=== PATIENT | female | born 1980 | race American Indian/Alaskan Native ===

== ENCOUNTER 2017-01-25 20:10 | Emergency (ER) | payer OTHER ==
[2017-01-25 20:36] VITALS: O2SAT 100
--- NOTE | 2017-01-25 21:00 | C.PDOC ---
History Of Present Illness A 36 year old female with a Hx of migraines, presents to the ER c/o itchy throat that occurred today. Patient notes that an hour ago she took Sumatriptan for the first time then 30 min after she states "felt her throat was dry and itching" and was unsure if it was the medication she took. Patient reports no known allergies. Patient denies nausea, vomiting, fever, chills, or any other complaints. Time Seen by Provider: 01/25/17 20:48 Chief Complaint (Nursing): Allergic Reaction History Per: Patient History/Exam Limitations: no limitations Onset/Duration Of Symptoms: Hrs Current Symptoms Are (Timing): Still Present Possible Cause: Medication Associated Symptoms: Itching Severity: Mild Additional History Per: Patient Past Medical History Reviewed: Historical Data, Nursing Documentation, Vital Signs Vital Signs: Last Vital Signs Temp 97.9 F 01/25/17 20:34 Pulse 101 H 01/25/17 20:34 Resp 16 01/25/17 20:34 BP 115/75 01/25/17 20:34 Pulse Ox 100 01/25/17 21:28 - Medical History PMH: Gastritis, Pancreatitis Family History: States: Unknown Family Hx - Social History Hx Tobacco Use: No Hx Alcohol Use: No Hx Substance Use: No - Immunization History Hx Tetanus Toxoid Vaccination: No Hx Influenza Vaccination: Yes Hx Pneumococcal Vaccination: Yes Review Of Systems Except As Marked, All Systems Reviewed And Found Negative. Constitutional: Negative for: Fever, Chills ENT: Positive for: Other (Throat itching) Gastrointestinal: Negative for: Nausea, Vomiting Physical Exam - Physical Exam Appears: Non-toxic, No Acute Distress Skin: Warm, Dry Head: Normacephalic Eye(s): bilateral: Normal Inspection, EOMI Nose: Normal Oral Mucosa: Moist Tongue: Normal Appearing, No Swelling Lips: Normal Appearing, No Swelling Throat: Normal, No Exudate Cardiovascular: Rhythm Regular, No Murmur Respiratory: Normal Breath Sounds, No Rales, No Rhonchi, No Wheezing Neurological/Psych: Oriented x3, Normal Speech (Speeking full sentences), Normal Cognition ED Course And Treatment O2 Sat by Pulse Oximetry: 100 (RA) Pulse Ox Interpretation: Normal Medical Decision Making Medical Decision Making: Plans: -Benadryl -PredniSONE -Pepcid -Reassess and disposition Patient is resting comfortably, tolerating PO, has no shortness of breath, has no intra-oral swelling, no stridor, no rash or pruritus. Patient was advised to avoid potential allergens, and to follow up with physician in 1-2 days. 930: pt reassesed. states feeling better. does not wish to wait in er for further obs. states she is ready for d/c at this time. advised to d/c sumatriptan. return precautions advised. pt instructed on epipen use, verbalizes understanding. pt on cell phone in nad. speaking full sentences. no e /o of airway compromise. Disposition - Disposition Referrals: [facility] [Outside] [facility] [Outside] Disposition: HOME/ ROUTINE Disposition Time: 21:26 Condition: STABLE Additional Instructions: please see your doctor/clinic. return to er with worsening symptoms or concerns. Prescriptions: DiphenhydrAMINE [Benadryl] 25 mg PO Q6 PRN #20 cap PRN Reason: Allergy Symptoms Epinephrine HCl [Epipen Auto-Injector] 0.3 mg IM ONCE PRN #1 ml PRN Reason: Anaphylaxis Prednisone 50 mg PO DAILY #4 tablet Instructions: Allergies (ED), General Allergic Reaction (ED) - Clinical Impression Clinical Impression: Allergic reaction - Scribe Statement The provider has reviewed the documentation as recorded by the Scribe Yao holm All medical record entries made by the Scribe were at my direction and personally dictated by me. I have reviewed the chart and agree that the record accurately reflects my personal performance of the history, physical exam, medical decision making, and the department course for this patient. I have also personally directed, reviewed, and agree with the discharge instructions and disposition.
[2017-01-25 21:40] VITALS: BP 112/74; PULSE 84; RESP 18; TEMP 97.8
== END 2017-01-25 21:40 | disposition home or self-care (01) ==
LOC: C.ER 20:10
DX: T78.40XA Allergy, unspecified, initial encounter (principal)

== ENCOUNTER 2018-04-15 17:01 | Emergency (ER) | payer OTHER ==
[2018-04-15 17:08] VITALS: RESP 18; TEMP 98.4; O2SAT 100
--- NOTE | 2018-04-15 18:07 | C.PDOC ---
History Of Present Illness 38 year old female presents to the ED complaining of right foot and ankle pain that began today at 1pm at work. Patient states pain is worse with movement, and better at rest. She denies any injuries/trauma. She took tylenol with mild relief. She denies denies any weakness, numbness, tingling. Time Seen by Provider: 04/15/18 17:21 Chief Complaint (Nursing): Lower Extremity Problem/Injury History Per: Patient History/Exam Limitations: no limitations Onset/Duration Of Symptoms: Hrs Current Symptoms Are (Timing): Still Present Past Medical History Reviewed: Historical Data, Nursing Documentation, Vital Signs Vital Signs: Last Vital Signs Temp 98.4 F 04/15/18 17:06 Pulse 90 04/15/18 18:34 Resp 18 04/15/18 18:34 BP 131/88 04/15/18 18:34 Pulse Ox 100 04/15/18 18:37 - Medical History PMH: Gastritis, Pancreatitis Other Surgeries: Hx of surgeries Family History: States: No Known Family Hx - Social History Hx Tobacco Use: No Hx Alcohol Use: No Hx Substance Use: No - Immunization History Hx Tetanus Toxoid Vaccination: No Hx Influenza Vaccination: Yes Hx Pneumococcal Vaccination: Yes Review Of Systems Musculoskeletal: Positive for: Foot Pain (Right ankle and foot pain ) Neurological: Negative for: Weakness, Numbness Physical Exam - Physical Exam Appears: Non-toxic, No Acute Distress Skin: Warm, Dry Head: Atraumatic, Normacephalic Eye(s): bilateral: Normal Inspection Nose: Normal Oral Mucosa: Moist Neck: Normal ROM, Supple Chest: Symmetrical Extremity: Normal ROM, Tenderness (Tenderness below right malleolus and plantar surface of foot ), Capillary Refill (< 2sec to right foot ), No Deformity, No Swelling Extremity: Bilateral: Normal Color And Temperature, Normal ROM Pulses: Left Dorsalis Pedis: Normal, Right Dorsalis Pedis: Normal Neurological/Psych: Oriented x3, Normal Speech, Normal Motor, Normal Sensation Gait: Steady ED Course And Treatment O2 Sat by Pulse Oximetry: 100 (RA) Pulse Ox Interpretation: Normal Medical Decision Making Medical Decision Making: Impression: Plantar fasciitis, Ankle sprain Orders: - Motrin 600mg PO Patient assessed and examined. On reassessment, patient reports feeling better. HEATHER bandage applied by CP. Ortho shoe applied. Patient instructed on crutch walking. Recommend elevation, rest, ice and ibuprofen. If symptoms persist the patient instructed to follow up with podiatry Disposition Counseled Patient/Family Regarding: Diagnosis, Need For Followup, Rx Given - Disposition Referrals: [facility] [Outside] [facility] [Outside] Disposition: HOME/ ROUTINE Disposition Time: 18:05 Condition: STABLE Additional Instructions: Follow up with your primary medical doctor or podiatry clinic in 2-5 days for further evaluation. Take Ibuprofen as needed for pain every 6-8 hours. Return to the emergency department at any time if symptoms persist or worsen. Prescriptions: Ibuprofen [Motrin] 600 mg PO Q8 #30 tab Instructions: Heel Pain (Caused by Plantar Fasciitis) (DC) Forms: [employer] (Turkmen), Work Excuse - POA Present On Arrival: None - Clinical Impression Clinical Impression: Plantar fasciitis, Ankle sprain - PA / DESIGN DRAFTER CHIEF / Resident Statement MD/DO has reviewed & agrees with the documentation as recorded. - Scribe Statement The provider has reviewed the documentation as recorded by the Scribsimon Boyd All medical record entries made by the Revaibsimon were at my direction and personally dictated by me. I have reviewed the chart and agree that the record accurately reflects my personal performance of the history, physical exam, medical decision making, and the department course for this patient. I have also personally directed, reviewed, and agree with the discharge instructions and disposition.
--- NOTE | 2018-04-15 18:23 | RAD ---
Date of service: 04/15/2018 PROCEDURE: Right Ankle Radiographs. HISTORY: pain and swelling s.p injury COMPARISON: None FINDINGS: BONES: Normal. No fracture. JOINTS: Normal. No osteoarthritis. Ankle mortise maintained. Talar dome intact SOFT TISSUES: Normal. OTHER FINDINGS: None. IMPRESSION: No evidence of acute fracture or dislocation.
[2018-04-15 18:35] VITALS: BP 131/88; PULSE 90
== END 2018-04-15 18:35 | disposition home or self-care (01) ==
LOC: C.ER 17:01
DX: M72.2 Plantar fascial fibromatosis (principal); S93.401A Sprain of unspecified ligament of right ankle, initial encounter; X58.XXXA Exposure to other specified factors, initial encounter

== ENCOUNTER 2018-04-19 17:42 | Emergency (ER) | payer OTHER ==
[2018-04-19 17:49] VITALS: BP 132/88; PULSE 85; RESP 18; TEMP 98; O2SAT 100
--- NOTE | 2018-04-19 18:08 | C.PDOC ---
History Of Present Illness 38 yo female was sent from clinic for Doppler US RLE r/o DVT. Pt reports, has intermittent Right foot pain radiating up to Right ankle area associated with tingling sensation gradually developed for past few weeks. Pt denies known trauma or injury, fever, chills, denies known trauma or injury, denies cough, CP , SOB, dyspnea, wheezing, palpitation, denies weakness, skin changes, sensory or vascular deficits to Right leg, denies Right calf pain. NO risk factors for DVT. Time Seen by Provider: 04/19/18 17:53 Chief Complaint (Nursing): Lower Extremity Problem/Injury History Per: Patient Past Medical History Reviewed: Historical Data, Nursing Documentation, Vital Signs Vital Signs: Last Vital Signs Temp 98 F 04/19/18 17:46 Pulse 85 04/19/18 17:46 Resp 18 04/19/18 17:46 BP 132/88 04/19/18 17:46 Pulse Ox 100 04/19/18 17:46 - Medical History PMH: Deep Vein Thrombosis, Gastritis, Pancreatitis Family History: States: Unknown Family Hx - Social History Hx Tobacco Use: No Hx Alcohol Use: No Hx Substance Use: No - Immunization History Hx Tetanus Toxoid Vaccination: No Hx Influenza Vaccination: Yes Hx Pneumococcal Vaccination: Yes Review Of Systems Except As Marked, All Systems Reviewed And Found Negative. Constitutional: Negative for: Fever, Chills ENT: Negative for: Throat Pain Cardiovascular: Negative for: Chest Pain, Palpitations, Edema, Light Headedness Respiratory: Negative for: Cough, Shortness of Breath Genitourinary: Negative for: Incontinence Musculoskeletal: Positive for: Foot Pain (Right) Skin: Negative for: Rash, Lesions Neurological: Negative for: Weakness, Numbness, Headache Physical Exam - Physical Exam Appears: Well, Non-toxic, No Acute Distress Skin: Normal Color, Warm, No Rash, No Ecchymosis Head: Normacephalic Eye(s): bilateral: PERRL Throat: No Erythema Neck: Trachea Midline, Supple Cardiovascular: Rhythm Regular, No Murmur, No JVD Respiratory: No Decreased Breath Sounds, No Accessory Muscle Use, No Stridor Back: No Vertebral Tenderness, No Paraspinal Tenderness Extremity: Normal ROM (RLE without difficulty or limitation), Tenderness (mild over plantar arch Right foot. No edmea, no erythema, no palpable defomrity.), No Calf Tenderness (Right), Capillary Refill (less than 2sec to Right foot), No Deformity, No Swelling Neurological/Psych: Oriented x3, Normal Speech, Normal Motor, Normal Sensation, Normal Reflexes ED Course And Treatment O2 Sat by Pulse Oximetry: 100 Pulse Ox Interpretation: Normal Progress Note: On re-eval, pt is afebrile, hemodynamicaly stable. NOn-toxic. Ambulatory in ED with stable gait. PulsOEx 100% RA. ENT: no acute findings. neck: SUpple. Lungs: CTA B/L, BS equal B/L. Right LE: mild tenderness over Right plantar arch. No edmea, no erythema, no palpable deofmrity. FAROM, no neurovascular defiicts. Doppler US is not available at present time at [facility]. Pt hsa ni risk factors for DVT. Pt advised return to ED tomorrow without fail for Doppler US. Pt understand and agrees with plan. STable for discharge now. Disposition Counseled Patient/Family Regarding: Diagnosis, Need For Followup, Rx Given - Disposition Referrals: [facility] [Provider Group] [facility] [Provider Group] Disposition: HOME/ ROUTINE Disposition Time: 18:05 Condition: STABLE Additional Instructions: RETURN TO ED TOMORROW FROM 8 AM-3PM FOR DOPPLER US RULE OUT DVT RIGHT LEG TAKE PAIN MEDICATION NEED Prescriptions: Gabapentin [Neurontin] 300 mg PO HS #7 cap Instructions: Deep Vein Thrombosis (Blood Clots in the Legs) Forms: [facility] (Turkish), Work Excuse - Clinical Impression Clinical Impression: Right foot pain
== END 2018-04-19 18:25 | disposition home or self-care (01) ==
LOC: C.ER 17:42
DX: M79.671 Pain in right foot (principal)

== ENCOUNTER 2018-12-13 11:13 | Emergency (ER) | payer OTHER ==
[2018-12-13 11:33] VITALS: RESP 20; O2SAT 100
[2018-12-13 12:23] LABS: HCG,QUALITATIVE URINE NEGATIVE (NEGATIVE)
[2018-12-13 12:29] LABS: SQUAMOUS EPITHIAL 3 /hpf (0-5); URINE BACTERIA FEW (<OCC); URINE BILIRUBIN NEGATIVE (NEGATIVE); URINE BLOOD 2+ (NEGATIVE); URINE CLARITY Hazy (Clear); URINE COLOR Yellow (YELLOW); URINE GLUCOSE (UA) NORMAL (Normal); URINE LEUKOCYTE ESTERASE 2+ Leu/uL (Negative); URINE PROTEIN NEGATIVE (NEGATIVE); URINE UROBILINOGEN NORMAL mg/dL (0.2-1.0)
[2018-12-13 13:03] VITALS: BP 106/74; PULSE 88; TEMP 97.9
--- NOTE | 2018-12-13 13:03 | C.PDOC ---
History Of Present Illness 38 y/o female presents to the ED complaining of sensation of pelvic fullness for the last couple of days. Associated with scant blood in the urine, though she denies dysuria. Patient also reports urinary frequency and urgency. She admits to previous hx of UTI, and states current sensation feels similar. Otherwise she denies any headache, nausea, vomiting, chills, fevers, neck pain or stiffness. Time Seen by Provider: 12/13/18 11:39 Chief Complaint (Nursing): Female Genitourinary History Per: Patient History/Exam Limitations: no limitations Onset/Duration Of Symptoms: Days Current Symptoms Are (Timing): Still Present Associated Symptoms: Urinary Symptoms Past Medical History Reviewed: Historical Data, Nursing Documentation, Vital Signs Vital Signs: Last Vital Signs Temp 98.6 F 12/13/18 11:32 Pulse 100 H 12/13/18 11:32 Resp 20 12/13/18 11:32 BP 123/80 12/13/18 11:32 Pulse Ox 100 12/13/18 11:32 - Medical History PMH: Deep Vein Thrombosis, Gastritis, Pancreatitis Other Surgeries: Tubal ligation Family History: States: Unknown Family Hx - Social History Hx Tobacco Use: No Hx Alcohol Use: No Hx Substance Use: No - Immunization History Hx Tetanus Toxoid Vaccination: No Hx Influenza Vaccination: Yes Hx Pneumococcal Vaccination: Yes Review Of Systems Except As Marked, All Systems Reviewed And Found Negative. Constitutional: Negative for: Fever, Chills Gastrointestinal: Negative for: Nausea, Vomiting, Abdominal Pain Genitourinary: Positive for: Dysuria, Frequency (and urgency). Negative for: Hematuria, Vaginal Bleeding Musculoskeletal: Negative for: Back Pain Skin: Negative for: Rash Neurological: Negative for: Headache, Dizziness Physical Exam - Physical Exam Appears: Non-toxic, No Acute Distress Skin: Normal Color, Warm, Dry Head: Atraumatic, Normacephalic Eye(s): bilateral: Normal Inspection, PERRL, EOMI Oral Mucosa: Moist Throat: Normal (pharynx is clear), No Erythema, No Exudate Neck: Normal ROM, Supple Chest: Symmetrical Cardiovascular: Rhythm Regular, No Murmur Respiratory: Normal Breath Sounds, No Rales, No Rhonchi, No Wheezing Gastrointestinal/Abdominal: Soft, Tenderness (mild discomfort on deep palpation of suprapubic area), No Guarding, No Rebound Back: No CVA Tenderness, No Vertebral Tenderness Extremity: Bilateral: Atraumatic, Normal Color And Temperature Neurological/Psych: Oriented x3, Normal Speech Gait: Steady ED Course And Treatment - Laboratory Results Lab Results: Urine Color Yellow (YELLOW) 12/13/18 12:06 Urine Clarity Hazy (Clear) 12/13/18 12:06 Urine pH 5.0 (5.0-8.0) 12/13/18 12:06 Ur Specific Ribera 1.017 (1.003-1.030) 12/13/18 12:06 Urine Protein Negative mg/dL (NEGATIVE) 12/13/18 12:06 Urine Glucose (UA) Normal mg/dL (Normal) 12/13/18 12:06 Urine Ketones Negative mg/dL (NEGATIVE) 12/13/18 12:06 Urine Blood 2+ (NEGATIVE) H 12/13/18 12:06 Urine Nitrate Positive (NEGATIVE) H 12/13/18 12:06 Urine Bilirubin Negative (NEGATIVE) 12/13/18 12:06 Urine Urobilinogen Normal mg/dL (0.2-1.0) 12/13/18 12:06 Ur Leukocyte Esterase 2+ Kelsey/uL (Negative) H 12/13/18 12:06 Urine WBC (Auto) 64 /hpf (0-5) H 12/13/18 12:06 Urine RBC (Auto) 15 /hpf (0-3) H 12/13/18 12:06 Ur Squamous Epith Cells 3 /hpf (0-5) 12/13/18 12:06 Urine Bacteria Few (<OCC) H 12/13/18 12:06 Urine HCG, Qual Negative (NEGATIVE) 12/13/18 12:06 Urine HCG, Qual Negative (NEGATIVE) 12/13/18 12:06 O2 Sat by Pulse Oximetry: 100 (RA) Pulse Ox Interpretation: Normal Medical Decision Making Medical Decision Making: Impression: Dysuria, r/o UTI Plan: - Urine HCG - Urinalysis - Urine culture UA shows +leuks, WBC, few bacteria, and nitrates. Patient will be discharged home with rx for motrin, macrobid, and pyridium. Initial dose given in the ER. Disposition Counseled Patient/Family Regarding: Studies Performed, Diagnosis, Need For Followup, Rx Given - Disposition Referrals: [facility] [Outside] Disposition: HOME/ ROUTINE Disposition Time: 12:59 Condition: STABLE Prescriptions: Ibuprofen [Motrin] 600 mg PO TID #12 tab Nitrofurantoin Macrocrystal [Nitrofurantoin] 100 mg PO BID #14 capsule Phenazopyridine [Pyridium] 200 mg PO BID #6 tab Instructions: Urinary Tract Infection, Adult (DC) Forms: [facility] (Pashto), General Discharge Instructions - POA Present On Arrival: None - Clinical Impression Clinical Impression: UTI (urinary tract infection) - Scribe Statement The provider has reviewed the documentation as recorded by the Clinton Hendrickson Provider Attestation: All medical record entries made by the Clinton were at my direction and personally dictated by me. I have reviewed the chart and agree that the record accurately reflects my personal performance of the history, physical exam, medical decision making, and the department course for this patient. I have also personally directed, reviewed, and agree with the discharge instructions and disposition.
== END 2018-12-13 13:09 | disposition home or self-care (01) ==
LOC: C.ER 11:13
DX: N39.0 Urinary tract infection, site not specified (principal)